=== PATIENT | female | born 1990 | race Caucasian/White ===

== ENCOUNTER 2018-07-03 10:42 | Emergency (ER) | payer SELFPAY ==
[2018-07-03 10:57] VITALS: BP 138/82; PULSE 91; RESP 21; TEMP 37.3; O2SAT 100; BMI 27.1
--- NOTE | 2018-07-03 11:01 | XR_ITS ---
XR foot LT min 3V HISTORY: Posttraumatic pain ITS.REASON: INJURED LEFT FOOT ORDERING PHYSICIAN: Bartolome Morales APRN PATIENT AGE: 27 years COMPARISON: None FINDINGS: No obvious fracture. There is some mild prominence of the PIP joint of the fifth digit. The middle phalanx of the fifth digit appears somewhat hypoplastic. No other significant anomalies are evident. IMPRESSION: Mild subluxation of the middle phalanx at the PIP joint of the fifth digit otherwise negative
--- NOTE | 2018-07-03 11:04 | PC.NURSE ---
RADIOLOGY NOTIFIED OF XRAYS LEFT FOOT
--- NOTE | 2018-07-03 11:12 | PC.NURSE ---
TO RADIOLOGY PER W/C.
--- NOTE | 2018-07-03 11:29 | HMH.EDUTC ---
[facility] [place] Disposition Clinical Impression: Subluxation of toe Qualifiers: Encounter type: initial encounter Laterality: left Qualified Code(s): S93.102A - Unspecified subluxation of left toe(s), initial encounter Dislocation of toe, right, closed Qualifiers: Encounter type: initial encounter Qualified Code(s): S93.104A - Unspecified dislocation of right toe(s), initial encounter Disposition: Home, Self-Care Condition on Discharge: Good Instructions: DI for Dislocated Toe, Dislocated Toe Additional Instructions: Follow up with podiatry. I put in the referral to Dr. Greene. Please call the office number today and get an appointment. Take Ibuprofen for the pain. I sent in a prescription. RICE--Rest the extremity, Apply Ice as tolerated for 15 minutes three or four times per day, Elevate the extremity while you are resting Wear the hard boot and use the crutches for ambulation until you are seen by the hand salter, then follow her instructions from there. GO TO THE ER FOR ANY WORSENING SYMPTOMS Prescriptions: Ibuprofen [Ibuprofen 600mg Tablet] 600 mg PO Q6HP PRN #30 tab PRN Reason: Mild Pain Referrals: Provider,Referral, [Primary Care Provider] - Emma Greene DPM [Staff Physician] - Time of Disposition: 12:18 Medical Decision Making - Medical Records Medical records reviewed: Yes: I reviewed the patient's medical records. - Josh Inquiry Pt receiving controlled substance: No Josh was queried for this patient: No Vital Signs: 07/03/18 10:57 07/03/18 12:18 Temperature 99.1 F 99.1 F Temperature Source Oral Oral Pulse Rate 91 H Pulse Rate [Right Brachial] 91 H Respiratory Rate 21 21 Blood Pressure 138/82 Blood Pressure [Right Arm] 138/82 Blood Pressure Mean [Right Arm] 100 Blood Pressure Source Automatic Cuff Blood Pressure Source [Right Arm] Automatic Cuff Blood Pressure Position Sitting Blood Pressure Position [Right Arm] Sitting 02 Sat by Pulse Oximetry 100 Oxygen Delivery Method Room Air Room Air Orders (Tests/Meds): ED MEDICATIONS Discontinued Medications Generic Name Dose Route Start Last Admin Trade Name Freq PRN Reason Stop Dose Admin Ibuprofen 600 mg 07/03/18 11:32 07/03/18 11:37 Motrin 600mg Tablet PO 07/03/18 11:33 600 mg ONCE ONE Administration Medical Decision Narrative: left smallest toe subluxation noted on x-ray. the toe was push back into place and then taped to the toe beside it. then a walking cast boot was applied. referral to podiatry made and explained to the patient. [facility] [place] HPI - General Stated complaint: broken toe Time Seen by Provider: 07/03/18 11:10 Mode of Arrival: Family Vehicle Source of Information: Patient Limitations: No Limitations Description of Symptoms (Recalled from Triage Doc. by RN): C/O LEFT FOOT/TOE PAIN AFTER JUMPOING OVER AN OTTOMAN AND CATCHING TOES ON IT 45 MINUTES ENDO TECH HEENT Symptoms (Recalled from RN notes): No Resp Symptoms (Recalled from RN notes): No Skin Symptoms (Recalled from RN notes): No MS Symptoms (Recalled from RN notes): Yes Functional Status (Recalled from RN notes): N/A - History of Present Illness Provider Complaint: She c/o left smallest toe pain since catching it on an ottoman about 45 minutes ago. She states it is also swollen. - Related Data Previous Rx's Medication Instructions Recorded Ibuprofen [Ibuprofen 600mg 600 mg PO Q6HP PRN #30 tab 07/03/18 Tablet] Allergies Allergy/AdvReac Type Severity Reaction Status Date / Time No Known Allergies Allergy Verified 07/03/18 11:00 - Worker's Comp Is this a Worker's Comp case?: No [facility] History - Hepatitis A Screen Drug use history?: No High risk sexual behaviors?: No History of sexually transmitted infection?: No Currently employed?: No Childcare worker?: No Do you have indoor plumbing?: Yes Do you have electricity?: Yes Attestation statement:: This patient has been screened for Hepatitis A risk fact
[2018-07-03 12:18] VITALS: BP 138/82; PULSE 91; RESP 21; TEMP 37.3; O2SAT 100
== END 2018-07-03 12:25 | disposition home or self-care (01) ==
LOC: ER 10:49 → UTC 10:50
PROVIDERS: Emergency Provider Nurse Practitioner Family
DX: S93.102A Unspecified subluxation of left toe(s), initial encounter (principal); F17.210 Nicotine dependence, cigarettes, uncomplicated; W22.03XA Walked into furniture, initial encounter; Y92.019 Unspecified place in single-family (private) house as the place of occurrence of the external cause
CPT/HCPCS: 29515; 73630; 99201; 99202

== ENCOUNTER → 2018-07-06 13:18 | Outpatient (CLI) | payer SELFPAY ==
--- NOTE | 2018-07-06 13:37 | XR_ITS ---
XR foot LT min 3V HISTORY: Fifth toe injury, pain with injury ITS.REASON: 3 views ORDERING PHYSICIAN: Angeli Askew MD PATIENT AGE: 27 years COMPARISON: None FINDINGS: No fracture or dislocation. No lytic or blastic change. There is normal mineralization.. The joint spaces are well-preserved. No significant degenerative/arthritic changes. No erosive changes evident. Hypoplastic changes are present involving the middle phalanx of the fifth toe as previously described. IMPRESSION: No change with no acute finding.
--- NOTE | 2018-07-06 14:38 | XR_ITS ---
XR foot LT min 3V HISTORY: Follow-up fifth toe reduction ITS.REASON: 3 views post reduction ORDERING PHYSICIAN: Angeli Askew MD PATIENT AGE: 27 years COMPARISON: None FINDINGS: Hypoplasia noted at the middle phalanx of the fifth toe as previously described with minimal plantar subluxation not significantly changed. IMPRESSION: No change from prior exam of the same day
== END ==
PROVIDERS: Visit Provider Orthopaedic Surgery
DX: S93.10 Unspecified subluxation and dislocation of toe (principal)
CPT/HCPCS: 73630

== ENCOUNTER 2020-06-24 09:10 | Emergency (ER) | payer MEDICAID, SELFPAY ==
[2020-06-24 09:10] VITALS: BP 145/102; PULSE 86; RESP 14; TEMP 36.9; O2SAT 99; BMI 28.1
--- NOTE | 2020-06-24 09:39 | HMH.EDUTC ---
[facility] [place] Clinical Impression: Exposure to COVID-19 virus Disposition: Home, Self-Care Condition on Discharge: Good Instructions: Preventing the Spread of Coronavirus Discharge Instructions Additional Instructions: Drink plenty of fluids. Take tylenol for pain or fever. Return if you begin to have difficulty breathing. Follow up with your regular doctor. GO TO THE ER FOR ANY WORSENING SYMPTOMS Referrals: Charu Mike PA [Primary Care Provider] - Time of Disposition: 09:43 Medical Decision Making - Medical Records Medical records reviewed: No: I reviewed the patient's medical records. - Josh Inquiry Pt receiving controlled substance: No Vital Signs: 06/24/20 09:10 Temperature 98.4 F Temperature Source Oral Pulse Rate [Right] 86 Respiratory Rate 14 Blood Pressure [Right Arm] 145/102 H Blood Pressure Mean [Right Arm] 116 02 Sat by Pulse Oximetry 99 Oxygen Delivery Method Room Air Orders (Tests/Meds): ORDERS Category Date Time Status Covid-19 Nasal PCR ([facility]) Routine Lab 06/24/20 09:28 Ordered [facility] [place] HPI - General Stated complaint: Covid Test Time Seen by Provider: 06/24/20 09:39 Mode of Arrival: Ambulatory Source of Information: Patient Limitations: No Limitations Description of Symptoms (Recalled from Triage Doc. by RN): pt request covid test but has no symptoms HEENT Symptoms (Recalled from RN notes): No Resp Symptoms (Recalled from RN notes): No Skin Symptoms (Recalled from RN notes): No MS Symptoms (Recalled from RN notes): No Functional Status (Recalled from RN notes): wnl - History of Present Illness Provider Complaint: Her son tested positive for covid-19 2 days ago. She denies any symptoms so far. - Related Data Previous Rx's Medication Instructions Recorded Ibuprofen [Ibuprofen 600mg 600 mg PO Q6HP PRN #30 tab 07/03/18 Tablet] Azithromycin [Z-Gregory 250mg Tab*] 250 mg PO UD DOSE PK #6 tab 11/23/18 Brompheniramine/Pseudoephed/Dm 5 ml PO Q6HP PRN #240 syrup 11/23/18 [Bromfed Dm Cough Syrup] methylPREDNISolone [Medrol] 4 mg PO DIRECTED 6 Days #21 11/23/18 tab.ds.pk Allergies Allergy/AdvReac Type Severity Reaction Status Date / Time No Known Allergies Allergy Verified 06/24/20 09:28 - Worker's Comp Is this a Worker's Comp case?: No [facility] History - Hepatitis A Screen Drug use history?: No High risk sexual behaviors?: No History of sexually transmitted infection?: No Currently employed?: No Childcare worker?: No Do you have indoor plumbing?: Yes Do you have electricity?: Yes Attestation statement:: This patient has been screened for Hepatitis A risk factors. I have reviewed the patient's past medical history: Yes Laterality Cases: Bilateral: Tonsillectomy Fractures: Yes (NOSE X 3) - Social History Smoking Status: Never smoker Tobacco Type: cigarettes # Packs/Day (cigarettes): 1 Alcohol Intake: never Occupational Status: employed Housing: house ROS Obtained: Yes All systems reviewed & no additional complaints - Constitutional Constitutional: Reports system reviewed and no additional complaints, except as docu - Eyes Eyes: Reports system reviewed and no additional complaints, except as docu - ENT Ears, Nose, Mouth, and Throat: Reports system reviewed and no additional complaints, except as docu - Cardiovascular Cardiovascular: Reports system reviewed and no additional complaints, except as docu - Respiratory Respiratory: Reports system reviewed and no additional complaints, except as docu - Gastrointestinal Gastrointestingal: Reports: system reviewed and no additional complaints, except as docu Physical Exam - General General appearance: alert, in no apparent distress - Head Head exam: atraumatic, normocephalic, normal inspection - Eye Eye exam: Present: normal appearance, PERRL, EOMI - ENT ENT exam: Present: normal exam, normal oropharynx, mucous membranes moist, TM's normal bilat
[2020-06-24 09:46] VITALS: BP 137/99; PULSE 86; RESP 14; TEMP 36.9; O2SAT 99
== END 2020-06-24 09:48 | disposition home or self-care (01) ==
PROVIDERS: Emergency Provider Nurse Practitioner Family; PCP Physician Assistant
DX: Z20.822 Contact with and (suspected) exposure to COVID-19 (principal)
CPT/HCPCS: 99202; G0463; U0003